=== PATIENT | female | born 1965 | race African-American/Black ===

== ENCOUNTER 2017-08-16 10:32 | Emergency (ER) | payer SELFPAY ==
[~2017-08-16] VITALS: Ht 154.9 cm; Wt 111.8 kg
[~2017-08-16 10:32] MED LIST: ALBUTEROL0.83 MG/ML IH; COREG 25MG25 MG/TAB PO; DEXILANT30 MG PO; NORVASC2.5 MG PO; PRINZIDE 25 MG-1 TAB PO; PROVENTIL0.09 MG/A1 IH; XARELTO20 MG PO; ZANTAC 150MG T150 MG PO; ZOCOR 40MG40 MG PO
[2017-08-16 10:41] VITALS: TEMP 98.6
[2017-08-16 11:34] LABS: ALANINE AMINOTRANSFERASE 18 U/L (9-52); ALBUMIN 4.6 gm/dL (3.5-5.0); ALKALINE PHOSPHATASE 65 U/L (50-136); ANION GAP 13 mmol/L (7-16); AST,SGOT 17 U/L (15-37); BILIRUBIN,TOTAL 0.4 mg/dL (0.0-1.0); BLOOD UREA NITROGEN 8 mg/dL (7-17); CALCIUM 9.6 mg/dL (8.4-10.2); CARBON DIOXIDE 23 mmol/L (22-30); CHLORIDE 107 mmol/L (98-107); CREATININE, serum 0.54 mg/dL (0.52-1.25); GLUCOSE 91 mg/dL (74-106); POTASSIUM 3.5 mmol/L (3.4-5.0); SODIUM 142 mmol/L (137-145); TOTAL PROTEIN 7.5 gm/dL (6.4-8.2)
[2017-08-16 11:54] LABS: PROTHROMBIN TIME 11.7 SECONDS (9.7-12.8)
[2017-08-16 11:55] LABS: TROPONIN-I < 0.012 ng/mL (0.000-0.034)
[2017-08-16 11:56] LABS: PARTIAL THROMBOPLASTIN TIME 23.9 SECONDS (26.0-37.0)
[2017-08-16 12:04] LABS: BASO % 0.5 % (0.0-2.0); EOS # 0.1 (0.0-0.7); EOS % 1.1 % (0-4.0); GRAN # 4.2 (1.4-6.5); GRAN % 65.5 % (42.2-75.2); HEMOGLOBIN 12.2 g/dl (12.5-16.0); LYMPH # 1.7 (1.2-3.4); MEAN CELL VOLUME 92 fl (80.0-100.0); MEAN CORPUSCULAR HEMOGLOBIN 31 pg (27.0-31.0); MEAN CORPUSCULAR HGB CONC 33 g/dl (33.0-37.0); MEAN PLATELET VOLUME 10.9 fl (7.4-10.4); MONO # 0.4 (0.1-0.6); MONO % 6.7 % (1.7-9.3); PLATELET COUNT 240 K/mm3 (130-400); RED BLOOD COUNT 3.97 M/mm3 (4.10-5.30); REDCELL DISTRIBUTION WIDTH-CV 13.2 % (11.5-14.5)
[2017-08-16 12:05] LABS: HEMATOCRIT 36.7 % (37.0-47.0)
[2017-08-16] MEDS ORDERED: NORVASC2.5 MG PO (13:32)
[2017-08-16] MEDS ORDERED: PROVENTIL0.09 MG/A1 IH (13:32)
[2017-08-16] MEDS ORDERED: NITROSTAT0.4 MG/TAB SL (13:32)
[2017-08-16 14:07] VITALS: BP 202/119; PULSE 84
== END 2017-08-16 14:00 | disposition home or self-care (01) ==
LOC: COL.ER 10:32
PROVIDERS: Family Medicine
DX: I10 Essential (primary) hypertension (principal); T46.5X6A Underdosing of other antihypertensive drugs, initial encounter; Z91.120 Patient's intentional underdosing of medication regimen due to financial hardship; R07.9 Chest pain, unspecified; R06.02 Shortness of breath; F41.9 Anxiety disorder, unspecified; Z86.718 Personal history of other venous thrombosis and embolism; Z76.0 Encounter for issue of repeat prescription
CPT/HCPCS: J2270

== ENCOUNTER 2017-09-20 07:06 | Inpatient (IN) | payer OTHER ==
[~2017-09-20] VITALS: Ht 162.6 cm; Wt 92.6 kg
[2017-09-20] VITALS (295 sets, daily range): BP systolic 154–201; BP diastolic 78–125; PULSE 54–64; TEMP 97.1–98.4; O2SAT 87–100
[~2017-09-20 07:06] MED LIST changes: +NITROSTAT0.4 MG/TAB SL
[2017-09-20 07:40] LABS: BASO % 0.7 % (0.0-2.0); EOS # 0.1 (0.0-0.7); EOS % 2.6 % (0-4.0); GRAN # 1.8 (1.4-6.5); GRAN % 42.7 % (42.2-75.2); HEMATOCRIT 41.2 % (37.0-47.0); HEMOGLOBIN 13.4 g/dl (12.5-16.0); LYMPH # 1.8 (1.2-3.4); MEAN CELL VOLUME 92 fl (80.0-100.0); MEAN CORPUSCULAR HEMOGLOBIN 30 pg (27.0-31.0); MEAN CORPUSCULAR HGB CONC 33 g/dl (33.0-37.0); MEAN PLATELET VOLUME 10.7 fl (7.4-10.4); MONO # 0.4 (0.1-0.6); MONO % 9.8 % (1.7-9.3); PLATELET COUNT 280 K/mm3 (130-400); RED BLOOD COUNT 4.47 M/mm3 (4.10-5.30); REDCELL DISTRIBUTION WIDTH-CV 12.9 % (11.5-14.5)
[2017-09-20 07:49] LABS: ALANINE AMINOTRANSFERASE 29 U/L (9-52); ALBUMIN 4.7 gm/dL (3.5-5.0); ALKALINE PHOSPHATASE 59 U/L (50-136); ANION GAP 10 mmol/L (7-16); AST,SGOT 24 U/L (15-37); BILIRUBIN,TOTAL 0.6 mg/dL (0.0-1.0); BLOOD UREA NITROGEN 8 mg/dL (7-17); CALCIUM 9.6 mg/dL (8.4-10.2); CARBON DIOXIDE 24 mmol/L (22-30); CHLORIDE 106 mmol/L (98-107); CREATININE, serum 0.57 mg/dL (0.52-1.25); LIPASE 149 U/L (23-300); SODIUM 141 mmol/L (137-145); TOTAL PROTEIN 7.8 gm/dL (6.4-8.2)
[2017-09-20 07:52] LABS: PROTHROMBIN TIME 11.8 SECONDS (9.7-12.8)
[2017-09-20 07:54] LABS: PARTIAL THROMBOPLASTIN TIME 29.9 SECONDS (26.0-37.0)
[2017-09-20 08:01] LABS: TROPONIN-I < 0.012 ng/mL (0.000-0.034)
[2017-09-20 08:02] LABS: GLUCOSE 95 mg/dL (74-106)
[2017-09-21] VITALS (466 sets, daily range): BP systolic 121–155; BP diastolic 67–99; PULSE 51–90; TEMP 97.4–98.7; O2SAT 77–100
[2017-09-21 10:01] LABS: HEMATOCRIT 38.3 % (37.0-47.0); HEMOGLOBIN 12.3 g/dl (12.5-16.0); MEAN CELL VOLUME 94 fl (80.0-100.0); MEAN CORPUSCULAR HEMOGLOBIN 30 pg (27.0-31.0); MEAN CORPUSCULAR HGB CONC 32 g/dl (33.0-37.0); MEAN PLATELET VOLUME 10.5 fl (7.4-10.4); PLATELET COUNT 253 K/mm3 (130-400); RED BLOOD COUNT 4.09 M/mm3 (4.10-5.30)
[2017-09-21 10:20] LABS: ANION GAP 11 mmol/L (7-16); BLOOD UREA NITROGEN 7 mg/dL (7-17); CARBON DIOXIDE 23 mmol/L (22-30); CHLORIDE 107 mmol/L (98-107); CHOLESTEROL 215 mg/dL (120-200); CHOLESTEROL RISK RATIO 3.9; CREATININE, serum 0.58 mg/dL (0.52-1.25); GLUCOSE 89 mg/dL (74-106); HDL CHOLESTEROL 54 mg/dL; LDL CHOLESTEROL 149 mg/dL; MAGNESIUM 2.2 mg/dL (1.6-2.3); POTASSIUM 3.8 mmol/L (3.4-5.0); SODIUM 140 mmol/L (137-145); TRIGLYCERIDE 61 mg/dL
[2017-09-21 10:31] LABS: TROPONIN-I < 0.012 ng/mL (0.000-0.034)
[2017-09-21 10:49] LABS: BASOPHIL 2 % (0-2); LYMPHOCYTE 44 % (20.0-51.0); NEUTROPHILS 48 % (42.0-75.2)
[2017-09-21 10:50] LABS: PLATELET ESTIMATE NORMAL (NORMAL)
[2017-09-21 10:51] LABS: STOMATOCYTE 1+
[2017-09-22] VITALS (7 sets, daily range): BP systolic 124–152; BP diastolic 60–96; PULSE 60–85; TEMP 97.6–99.3
[2017-09-22 10:27] LABS: HEMATOCRIT 42.5 % (37.0-47.0); HEMOGLOBIN 13.8 g/dl (12.5-16.0); MEAN CELL VOLUME 92 fl (80.0-100.0); MEAN CORPUSCULAR HEMOGLOBIN 30 pg (27.0-31.0); MEAN CORPUSCULAR HGB CONC 33 g/dl (33.0-37.0); MEAN PLATELET VOLUME 10.8 fl (7.4-10.4); PLATELET COUNT 278 K/mm3 (130-400)
[2017-09-22 10:39] LABS: ALANINE AMINOTRANSFERASE 27 U/L (9-52); ALBUMIN 4.7 gm/dL (3.5-5.0); ALKALINE PHOSPHATASE 61 U/L (50-136); ANION GAP 13 mmol/L (7-16); AST,SGOT 16 U/L (15-37); BILIRUBIN,TOTAL 0.4 mg/dL (0.0-1.0); BLOOD UREA NITROGEN 11 mg/dL (7-17); CALCIUM 9.7 mg/dL (8.4-10.2); CARBON DIOXIDE 23 mmol/L (22-30); CHLORIDE 104 mmol/L (98-107); CREATININE, serum 0.63 mg/dL (0.52-1.25); GLUCOSE 100 mg/dL (74-106); POTASSIUM 3.9 mmol/L (3.4-5.0); SODIUM 140 mmol/L (137-145); TOTAL PROTEIN 7.7 gm/dL (6.4-8.2)
[2017-09-22 10:54] LABS: TROPONIN-I < 0.012 ng/mL (0.000-0.034)
[2017-09-23 04:03] VITALS: BP 98/66; PULSE 57; TEMP 98
[2017-09-23 07:04] LABS: BASO % 0.5 % (0.0-2.0); EOS # 0.1 (0.0-0.7); EOS % 1.8 % (0-4.0); GRAN # 2.9 (1.4-6.5); GRAN % 51.1 % (42.2-75.2); HEMATOCRIT 43.4 % (37.0-47.0); HEMOGLOBIN 14.1 g/dl (12.5-16.0); LYMPH # 2.1 (1.2-3.4); LYMPH % 36.7 % (20.0-51.0); MEAN CELL VOLUME 92 fl (80.0-100.0); MEAN CORPUSCULAR HEMOGLOBIN 30 pg (27.0-31.0); MEAN CORPUSCULAR HGB CONC 33 g/dl (33.0-37.0); MEAN PLATELET VOLUME 11.1 fl (7.4-10.4); MONO # 0.6 (0.1-0.6); MONO % 9.7 % (1.7-9.3); PLATELET COUNT 287 K/mm3 (130-400); RED BLOOD COUNT 4.71 M/mm3 (4.10-5.30); REDCELL DISTRIBUTION WIDTH-CV 12.7 % (11.5-14.5)
[2017-09-23 07:19] LABS: CREATININE, serum 0.73 mg/dL (0.52-1.25); POTASSIUM 3.6 mmol/L (3.4-5.0)
[2017-09-23 07:36] VITALS: BP 149/55; PULSE 62; TEMP 97.6
[2017-09-23] MEDS ORDERED: TOPROL XL 50MG50 MG PO ×2 (11:56)
[2017-09-23 12:03] VITALS: BP 104/69; PULSE 84; TEMP 98.6
[2017-09-23] MEDS ORDERED: NORVASC 5MG5 MG/TAB PO ×2 (12:53)
[2017-09-23] MEDS ORDERED: PRIL40 PO ×2 (12:55)
== END 2017-09-23 15:10 | disposition home or self-care (01) | DRG 313 ==
LOC: COL.ER 07:06 → ICU 09:45 → MEDICAL 09-21 12:11
PROVIDERS: Emergency Medicine; Internal Medicine
DX: R07.89 Other chest pain (principal); I16.0 Hypertensive urgency; I10 Essential (primary) hypertension; J44.9 Chronic obstructive pulmonary disease, unspecified; I34.1 Nonrheumatic mitral (valve) prolapse; Z86.718 Personal history of other venous thrombosis and embolism; Z79.01 Long term (current) use of anticoagulants; F17.210 Nicotine dependence, cigarettes, uncomplicated; Z91.14 Patient's other noncompliance with medication regimen; K21.9 Gastro-esophageal reflux disease without esophagitis; K44.9 Diaphragmatic hernia without obstruction or gangrene
CPT/HCPCS: 99223-AI; 99232-AI; 99239; J0456; J1650; J2270; J2405; J7030; J7050; Q9967

== ENCOUNTER 2017-11-08 14:20 | Day surgery (SDC) | payer MEDICAID ==
[~2017-11-08] VITALS: Ht 154.9 cm; Wt 88.7 kg
[~2017-11-08 14:20] MED LIST changes: +NORVASC 5MG5 MG/TAB PO; +PRIL40 PO; +TOPROL XL 50MG50 MG PO
[2017-11-08 15:32] VITALS: BP 154/90; PULSE 65; TEMP 98.3
[2017-11-08] MEDS ORDERED: DEXILANT60 MG PO (15:32)
[2017-11-08] MEDS ORDERED: PROVENTIL0.09 MG/A1 IH (15:33)
[2017-11-08] MEDS ORDERED: NITROSTAT0.4 MG/TAB SL (15:34)
[2017-11-08] MEDS ORDERED: ASPIRIN 81M81 MG/TA2 PO (15:35)
[2017-11-08] MEDS ORDERED: ZOCOR 40MG40 MG PO (15:36)
[2017-11-08] MEDS ORDERED: NORVASC 5MG5 MG/TAB PO (15:37)
[2017-11-08] MEDS ORDERED: TOPROL XL 50MG50 MG PO (15:38)
[2017-11-08 16:35] VITALS: BP 151/87; PULSE 75
[2017-11-08 16:50] VITALS: BP 141/71; PULSE 58
[2017-11-08 17:05] VITALS: BP 137/71; PULSE 71
== END 2017-11-08 17:20 | disposition home or self-care (01) ==
LOC: SDCO 14:20
DX: Z12.11 Encounter for screening for malignant neoplasm of colon (principal); K21.0 Gastro-esophageal reflux disease with esophagitis; K57.30 Diverticulosis of large intestine without perforation or abscess without bleeding; K44.9 Diaphragmatic hernia without obstruction or gangrene; R07.9 Chest pain, unspecified; Z86.010 Personal history of colon polyps
CPT/HCPCS: J2250; J2405; J3010; J7030